=== PATIENT | female | born 1975 | race Caucasian/White ===

== ENCOUNTER 2018-11-06 13:22 | Day surgery (SDC) | payer OTHER ==
[2018-11-06] MEDS ORDERED: PROPOFOL 60 ML (14:54)
[2018-11-06] MEDS ORDERED: LIDOCAINE 2% (SDV) 5 ML INJ (14:54)
[2018-11-06] MEDS ORDERED: ONDANSETRON 4 MG INJ IV (15:30)
[2018-11-06] MEDS ORDERED: FENTAnyl 50 MCG/ML VIAL IV (15:30)
== END 2018-11-06 16:46 | disposition home or self-care (01) ==
LOC: GIL 13:22
DX: K63.89 Other specified diseases of intestine (principal)
CPT/HCPCS: 45380; 84703; 88305